=== PATIENT | female | born 1975 | race Two or more races ===

== ENCOUNTER 2017-01-30 11:12 | Inpatient (IN) | payer SELFPAY ==
[~2017-01-30] VITALS: Ht 167.6 cm; Wt 81.0 kg
[2017-01-30 12:09] LABS: Basophils # (auto) 0 uL; Basophils % (auto) 0.3 % (0.0-2.0); Eosinophils # (auto) 0.1 uL; Hematocrit 42.7 % (36.0-46.0); Hemoglobin 14.6 g/dL (12.2-16.2); Lymphocytes # (auto) 2.9 uL; Lymphocytes % (auto) 25.8 % (10.0-50.0); Mean Corpuscular Hemoglobin 29.4 pg (28.0-32.0); Mean Corpuscular Hgb Conc. 34.1 g/dL (32.0-36.0); Mean Corpuscular Volume 86.2 fL (80.0-100.0); Mean Platelet Volume 7.7 fL (7.4-10.4); Monocytes # (auto) 0.8 uL; Monocytes % (auto) 7.3 % (0.0-12.0); Neutrophils # (auto) 7.3 uL; Neutrophils % (auto) 65.6 % (37.0-80.0); Platelet Count (auto) 367 10^3/uL (140-450); Red Cell Distribution Width 12.8 % (11.6-16.0); White Blood Cell 11.1 10^3/uL (4.4-10.8)
[2017-01-30 12:33] LABS: Albumin 4.1 g/dL (3.4-5.0); BUN/Creatinine Ratio 16.4; Bilirubin, Total 0.5 mg/dL (0.2-1.0); Calcium 9.2 mg/dL (8.5-10.1); Potassium 3.9 mmol/L (3.5-5.1); Total Protein 8.3 g/dL (6.4-8.2)
[2017-01-30] MEDS ORDERED: SODIUM CHLORIDE 0.9% 1,000 ML IVB ONE (16:09)
[2017-01-30] MEDS ORDERED: METOCLOPRAMIDE HCL 5MG/ml INJ 2ml VIAL IV ONE (16:15)
[2017-01-30] MEDS ORDERED: NALBUPHINE HCL 10 MG/1ml INJECTION IV ONE (16:15)
[2017-01-30 16:40] LABS: Magnesium 2.4 mg/dL (1.6-2.6)
[2017-01-30 16:48] LABS: Urine Bilirubin Negative (Negative); Urine Blood TRACE /uL (Negative); Urine Color Yellow (Yellow); Urine Glucose Normal (Normal); Urine Ketone Negative (Negative); Urine RBC <1 /hpf (0 - 4); Urine Squamous Epithelial Cell FEW /hpf (<5); Urine Urobilinogen Normal (Negative); Urine pH 5.5 (5.0-8.0)
[2017-01-30 16:49] LABS: Urine Nitrite POSITIVE (Negative)
[2017-01-30] MEDS ORDERED: metroNIDAZOLE 500MG/100ML 100 ML IV ONE (17:00)
[2017-01-30] MEDS ORDERED: cefTRIAXone 1GM/50ML D5W 50 ML IV ONE (17:00)
[2017-01-30] MEDS ORDERED: TEMAZEPAM 15 MG CAP PO PRN (18:30)
[2017-01-30] MEDS ORDERED: MORPHINE SULF INJ 2 MG/ML SYRINGE 1ML IV PRN (18:30)
[2017-01-30] MEDS ORDERED: LORazepam 0.5 MG TAB PO PRN (18:30)
[2017-01-30] MEDS ORDERED: PROMETHAZINE HCL 25 MG/ML 1ML IV PRN (18:30)
[2017-01-30] MEDS ORDERED: HYDROcodone-ACET 5/325MG TAB PO PRN (18:30)
[2017-01-30] MEDS: SODIUM CHLORIDE 0.9% 1,000 ML IV SCH (19:07)
[2017-01-30 19:50] VITALS: BP 125/81
[2017-01-30] MEDS: FAMOTIDINE 20 MG TAB PO SCH (21:38)
[2017-01-30 22:00] VITALS: BP 125/81
[2017-01-30 23:14] VITALS: BP 125/81
[2017-01-31] VITALS (9 sets, daily range): BP systolic 111–175; BP diastolic 72–96
[2017-01-31] MEDS: metroNIDAZOLE 500MG/100ML 100 ML IV SCH ×4 (00:45→17:40)
[2017-01-31] MEDS: SODIUM CHLORIDE 0.9% 1,000 ML IV SCH ×2 (04:54→14:15)
[2017-01-31] MEDS: ACETAMINOPHEN 500 MG TAB PO PRN ×2 (05:24→19:41)
[2017-01-31] MEDS: cefTRIAXone 1GM/50ML D5W 50 ML IV SCH (08:22)
[2017-01-31] MEDS: FAMOTIDINE 20 MG TAB PO SCH ×2 (09:50→21:57)
[2017-02-01] MEDS: metroNIDAZOLE 500MG/100ML 100 ML IV SCH ×3 (00:30→12:00)
[2017-02-01] MEDS: ACETAMINOPHEN 500 MG TAB PO PRN ×2 (04:48→11:53)
[2017-02-01] MEDS: SODIUM CHLORIDE 0.9% 1,000 ML IV SCH (04:49)
[2017-02-01 05:04] VITALS: BP 101/65
[2017-02-01 06:11] LABS: Basophils # (auto) 0 uL; Basophils % (auto) 0.5 % (0.0-2.0); Eosinophils # (auto) 0.2 uL; Eosinophils % (auto) 2.8 % (0.0-7.0); Hematocrit 37.2 % (36.0-46.0); Hemoglobin 12.8 g/dL (12.2-16.2); Lymphocytes # (auto) 2.7 uL; Lymphocytes % (auto) 40.7 % (10.0-50.0); Mean Corpuscular Hemoglobin 29.2 pg (28.0-32.0); Mean Corpuscular Hgb Conc. 34.3 g/dL (32.0-36.0); Mean Corpuscular Volume 85.3 fL (80.0-100.0); Mean Platelet Volume 8.1 fL (7.4-10.4); Monocytes # (auto) 0.6 uL; Monocytes % (auto) 8.6 % (0.0-12.0); Neutrophils # (auto) 3.1 uL; Neutrophils % (auto) 47.4 % (37.0-80.0); Platelet Count (auto) 315 10^3/uL (140-450); Red Cell Distribution Width 13.2 % (11.6-16.0); White Blood Cell 6.5 10^3/uL (4.4-10.8)
[2017-02-01 07:05] LABS: Albumin 3.3 g/dL (3.4-5.0); Bilirubin, Direct 0.1 mg/dL (0-0.2); Bilirubin, Total 0.4 mg/dL (0.2-1.0); Total Protein 6.8 g/dL (6.4-8.2)
[2017-02-01] MEDS: cefTRIAXone 1GM/50ML D5W 50 ML IV SCH (08:33)
[2017-02-01 09:00] VITALS: BP 120/69
[2017-02-01] MEDS: FAMOTIDINE 20 MG TAB PO SCH (09:44)
[2017-02-01] MEDS ORDERED: METR500T PO (11:16)
[2017-02-01] MEDS ORDERED: LEVO500T3 PO (11:16)
[2017-02-01 12:14] VITALS: BP 120/69
== END 2017-02-01 13:23 | disposition home or self-care (01) | DRG 392 ==
LOC: ER 11:12 → OVERFLOW 11:13 → WEST WING 19:47
PROVIDERS: ADMIT Internal Medicine; ATTEND Internal Medicine
DX: K57.32 Diverticulitis of large intestine without perforation or abscess without bleeding (principal); N39.0 Urinary tract infection, site not specified; K76.0 Fatty (change of) liver, not elsewhere classified; E66.9 Obesity, unspecified; B96.20 Unspecified Escherichia coli [E. coli] as the cause of diseases classified elsewhere; Z80.0 Family history of malignant neoplasm of digestive organs; Z82.49 Family history of ischemic heart disease and other diseases of the circulatory system; Z80.49 Family history of malignant neoplasm of other genital organs; Z84.89 Family history of other specified conditions; Z98.890 Other specified postprocedural states; Z83.3 Family history of diabetes mellitus; Z68.28 Body mass index [BMI] 28.0-28.9, adult
CPT/HCPCS: 36415; 74176; 76705; 80053; 80076; 81001; 83690; 83735; 84702; 85025; 87086; 87088; 87186; 96365; 96368; 96375; J0696; J3490